=== PATIENT | female | born 1965 | race Caucasian/White ===

== ENCOUNTER 2021-11-17 17:30 | Emergency (ER) | payer BC ==
[~2021-11-17] VITALS: Ht 154.9 cm; Wt 65.8 kg
[2021-11-17 17:45] VITALS: BP 192/95
--- NOTE | 2021-11-17 17:45 | NUR ---
pt taken to xray at this time
--- NOTE | 2021-11-17 17:58 | NUR ---
pt returned from xray
[2021-11-17 18:22] VITALS: BP 184/92
--- NOTE | 2021-11-17 18:22 | NUR ---
Patient discharged with v/s stable. Written and verbal after care instructions given FOR [employer] and explained. Patient verbalized understanding. Ambulatory with steady gait. All questions addressed prior to discharge. Advised to follow up with PMD.
== END 2021-11-17 18:22 | disposition home or self-care (01) ==
LOC: MED 17:30
DX: S52.121A Displaced fracture of head of right radius, initial encounter for closed fracture (principal); E11.9 Type 2 diabetes mellitus without complications; I10 Essential (primary) hypertension; W19.XXXA Unspecified fall, initial encounter; Y93.89 Activity, other specified; Y92.89 Other specified places as the place of occurrence of the external cause; Y99.8 Other external cause status
CPT/HCPCS: 29105; 73080; 99283